=== PATIENT | male | born 1950 | race African-American/Black ===

== ENCOUNTER 2021-11-27 09:30 | Inpatient (IN) | payer MEDICARE ==
[2021-11-27] MEDS ORDERED: Cefepime 2 GM VIAL ONE (09:50)
[2021-11-27] MEDS ORDERED: Vancomycin 1 GM/200 ML BAG ONE (09:50)
[2021-11-27 10:12] LABS: Hemoglobin 10.2 g/dL (14.0-18.0); Mean Corpuscular HGB CONC 29.5 g/dL (32.0-36.0); Mean Corpuscular Hemoglobin 24.6 pg (27.0-31.0); Mean Corpuscular Volume 83.3 fL (78.0-98.0); Red Blood Cell (RBC) Count 4.13 mill/uL (4.70-6.10)
[2021-11-27 10:18] LABS: ALT (SGPT) 22 U/L (8-55); AST (SGOT) 22 U/L (5-34); Albumin 2.6 g/dL (3.4-4.8); Alkaline Phosphatase 117 U/L (40-110); Anion Gap 14 mmol/L (10-20); BUN (Urea Nitrogen) 27 mg/dL (8.4-25.7); Bilirubin, Total 0.4 mg/dL (0.2-1.2); Calc. Creatinine Clearance 0 mL/min (70-130); Calcium 8.7 mg/dL (7.8-10.44); Carbon Dioxide 28 mmol/L (23-31); Chloride 95 mmol/L (98-107); Glucose 323 mg/dL (80-115); Lipase 31 U/L (8-78); Potassium 4.4 mmol/L (3.5-5.1); Protein, Total 6.6 g/dL (5.8-8.1); Sodium 133 mmol/L (136-145)
[2021-11-27] MEDS ORDERED: Vancomycin 1.5 GRAM/300 ML BAG 1.5 GM in Premix Bag 1 BAG IVPB SCH (10:30)
[2021-11-27 10:32] LABS: Anisocytosis SLIGHT = 6-15 cells (100X) (0-5/hpf); Hypochromia SLIGHT = 6-15 cells (100X) (0-5/hpf); Lymphocytes 2 % (21-51); MDiff Complete? YES; Mean Platelet Volume 8.4 fL (7.4-10.4); Monocytes 2 % (0-10); Neutrophil 96 % (42-75); Platelet Count 187 thou/uL (130-400); Platelet Morphology Comment Appears Adequate; RBC Distribution Width 17.2 % (11.5-14.5); White Blood Cell (WBC) Count 1.4 thou/uL (4.8-10.8)
[2021-11-27] MEDS ORDERED: Acetaminophen 325 MG TAB PO PRN (11:19)
[2021-11-27] MEDS ORDERED: Ondansetron PF 4 MG/2 ML Vial IVP PRN (11:19)
[2021-11-27 11:43] LABS: Bilirubin Negative (Negative); Blood, Urine Negative (Negative); Clarity Clear (Clear); Glucose, Urine (Dipstick) 150 mg/dL (Negative); Ketone, Urine Negative (Negative); Leukocyte Negative Leu/uL (Negative); Nitrite Negative (Negative); Protein, Urine (Dipstick) 20 mg/dL (Neg-Trace); Specific Gravity, Urine 1.039 (1.002-1.036); Urobilinogen Normal mg/dL (Less than 2); pH, Urine 5.5 (5.0-9.0)
[2021-11-27] MEDS: Meropenem 1 GM in Sodium Chloride 0.9% 100 ML IVPB SCH ×3 (13:15→21:04)
[2021-11-27] MEDS ORDERED: Meropenem 1 GM in Sodium Chloride 0.9% 100 ML IVPB SCH (14:00)
[2021-11-28] MEDS: Meropenem 1 GM in Sodium Chloride 0.9% 100 ML IVPB SCH ×3 (04:55→21:39)
[2021-11-28 06:28] LABS: #Lymphocytes 0.2 thou/uL (1.20-3.40); #Monocytes 0.4 thou/uL (0.11-0.59); #Neutrophils 4.1 thou/uL (1.40-6.50); %Eosinophils 0.2 % (0.0-10.0); %Lymphocytes 4.9 % (21.0-51.0); %Neutrophils 86.9 % (42.0-75.0); Hemoglobin 8.2 g/dL (14.0-18.0); Hypochromia SLIGHT = 6-15 cells (100X) (0-5/hpf); MDiff Complete? YES; Mean Corpuscular HGB CONC 28.5 g/dL (32.0-36.0); Mean Corpuscular Hemoglobin 24.2 pg (27.0-31.0); Mean Platelet Volume 8.1 fL (7.4-10.4); Platelet Count 182 thou/uL (130-400); RBC Distribution Width 16.7 % (11.5-14.5); Red Blood Cell (RBC) Count 3.39 mill/uL (4.70-6.10); White Blood Cell (WBC) Count 4.8 thou/uL (4.8-10.8)
[2021-11-28 06:30] LABS: Anion Gap 10 mmol/L (10-20); BUN (Urea Nitrogen) 20 mg/dL (8.4-25.7); Calc. Creatinine Clearance 81 mL/min (70-130); Calcium 8.3 mg/dL (7.8-10.44); Carbon Dioxide 27 mmol/L (23-31); Chloride 104 mmol/L (98-107); Glucose 127 mg/dL (80-115); Potassium 4.1 mmol/L (3.5-5.1); Sodium 137 mmol/L (136-145)
[2021-11-28] MEDS ORDERED: Furosemide 40 MG/4 ML VIAL ONE (08:07)
[2021-11-28] MEDS ORDERED: Mometasone 200 MCG/Formoterol 5 MCG 120 PUFF INHALER INH SCH (08:45)
[2021-11-28] MEDS ORDERED: methylPREDNISolone Sod Succ/PF 125 MG/2 ML VIAL IVP SCH (08:45)
[2021-11-28] MEDS ORDERED: Magnesium Sulfate 2 GM in Sodium Chloride 0.9% 100 ML IVPB SCH (09:12)
[2021-11-28] MEDS ORDERED: Magnesium 2 GM/50 ML 2 GM in Premix Bag 1 BAG IVPB SCH (09:30)
[2021-11-28] MEDS: Enoxaparin Sodium 40 MG/0.4 ML SYRINGE SC SCH (10:21)
[2021-11-28] MEDS ORDERED: Labetalol HCl 100 MG/20 ML VIAL SLOW IVP PRN (10:41)
[2021-11-28] MEDS ORDERED: Furosemide 20 MG/2 ML VIAL SLOW IVP SCH (10:45)
[2021-11-28] MEDS: methylPREDNISolone Sod Succ 40 MG VIAL IVP SCH ×2 (10:56→17:16)
[2021-11-28] MEDS ORDERED: Vancomycin 1 GM in Premix Bag 1 BAG IVPB SCH (11:00)
[2021-11-28 11:38] LABS: Troponin I 0.019 ng/mL (< 0.028)
[2021-11-28] MEDS: Azithromycin 500 MG in Sodium Chloride 0.9% 250 ML 250 ML IVPB SCH (13:46)
[2021-11-28] MEDS: Mometasone 200 MCG/Formoterol 5 MCG 120 PUFF INHALER INH SCH (19:11)
[2021-11-29] MEDS: methylPREDNISolone Sod Succ 40 MG VIAL IVP SCH ×4 (00:21→17:11)
[2021-11-29 03:45] LABS: #Lymphocytes 0.2 thou/uL (1.20-3.40); #Monocytes 0.1 thou/uL (0.11-0.59); #Neutrophils 2.9 thou/uL (1.40-6.50); %Eosinophils 0.1 % (0.0-10.0); %Lymphocytes 5.7 % (21.0-51.0); %Neutrophils 90.2 % (42.0-75.0); Hemoglobin 8.5 g/dL (14.0-18.0); Mean Corpuscular HGB CONC 30.1 g/dL (32.0-36.0); Mean Corpuscular Hemoglobin 24.8 pg (27.0-31.0); Mean Corpuscular Volume 82.5 fL (78.0-98.0); Mean Platelet Volume 8.4 fL (7.4-10.4); Platelet Count 166 thou/uL (130-400); RBC Distribution Width 16.8 % (11.5-14.5); Red Blood Cell (RBC) Count 3.44 mill/uL (4.70-6.10); White Blood Cell (WBC) Count 3.2 thou/uL (4.8-10.8)
[2021-11-29 04:07] LABS: ALT (SGPT) 18 U/L (8-55); AST (SGOT) 16 U/L (5-34); Albumin 2.4 g/dL (3.4-4.8); Alkaline Phosphatase 103 U/L (40-110); Anion Gap 11 mmol/L (10-20); BUN (Urea Nitrogen) 22 mg/dL (8.4-25.7); Bilirubin, Total 0.4 mg/dL (0.2-1.2); Calc. Creatinine Clearance 70 mL/min (70-130); Calcium 8.5 mg/dL (7.8-10.44); Carbon Dioxide 31 mmol/L (23-31); Chloride 98 mmol/L (98-107); Globulin 3.3 g/dL (2.4-3.5); Glucose 284 mg/dL (80-115); Phosphorus 2.8 mg/dL (2.3-4.7); Protein, Total 5.7 g/dL (5.8-8.1); Sodium 136 mmol/L (136-145)
[2021-11-29] MEDS: Meropenem 1 GM in Sodium Chloride 0.9% 100 ML IVPB SCH ×3 (05:04→20:23)
[2021-11-29] MEDS: Mometasone 200 MCG/Formoterol 5 MCG 120 PUFF INHALER INH SCH ×2 (07:50→18:56)
[2021-11-29] MEDS: Enoxaparin Sodium 40 MG/0.4 ML SYRINGE SC SCH (09:47)
[2021-11-29] MEDS: Azithromycin 500 MG in Sodium Chloride 0.9% 250 ML 250 ML IVPB SCH (12:00)
[2021-11-29] MEDS: Vancomycin 1.5 GRAM/300 ML BAG 1.5 GM in Premix Bag 1 BAG IVPB SCH (12:04)
[2021-11-30] MEDS: methylPREDNISolone Sod Succ 40 MG VIAL IVP SCH ×4 (00:35→21:23)
[2021-11-30 03:51] LABS: #Lymphocytes 0.2 thou/uL (1.20-3.40); #Monocytes 0.3 thou/uL (0.11-0.59); #Neutrophils 4.9 thou/uL (1.40-6.50); %Eosinophils 0.1 % (0.0-10.0); %Lymphocytes 3.8 % (21.0-51.0); %Monocytes 5.5 % (0.0-10.0); %Neutrophils 90.6 % (42.0-75.0); Hemoglobin 9.2 g/dL (14.0-18.0); Mean Corpuscular HGB CONC 29.9 g/dL (32.0-36.0); Mean Corpuscular Hemoglobin 25.2 pg (27.0-31.0); Mean Corpuscular Volume 84.1 fL (78.0-98.0); Mean Platelet Volume 8.5 fL (7.4-10.4); Platelet Count 173 thou/uL (130-400); RBC Distribution Width 16.5 % (11.5-14.5); Red Blood Cell (RBC) Count 3.65 mill/uL (4.70-6.10); White Blood Cell (WBC) Count 5.4 thou/uL (4.8-10.8)
[2021-11-30 03:54] LABS: Anion Gap 10 mmol/L (10-20); BUN (Urea Nitrogen) 15 mg/dL (8.4-25.7); Calc. Creatinine Clearance 81 mL/min (70-130); Calcium 8.5 mg/dL (7.8-10.44); Carbon Dioxide 32 mmol/L (23-31); Chloride 97 mmol/L (98-107); Glucose 271 mg/dL (80-115); Potassium 3.3 mmol/L (3.5-5.1); Sodium 136 mmol/L (136-145)
[2021-11-30] MEDS: hydrALAZINE 20 MG/ML VIAL SLOW IVP PRN (04:34)
[2021-11-30] MEDS: Meropenem 1 GM in Sodium Chloride 0.9% 100 ML IVPB SCH ×3 (04:35→21:23)
[2021-11-30] MEDS: Enoxaparin Sodium 40 MG/0.4 ML SYRINGE SC SCH (10:13)
[2021-11-30] MEDS ORDERED: Dextrose 5% in Water 1,000 ML IV PRN (10:17)
[2021-11-30] MEDS ORDERED: Dextrose 50% Abboject 50 ML SYRINGE SLOW IVP PRN (10:17)
[2021-11-30] MEDS: Potassium Chloride 20 MEQ TAB PO SCH ×2 (10:39→15:06)
[2021-11-30] MEDS: Vancomycin 1.5 GRAM/300 ML BAG 1.5 GM in Premix Bag 1 BAG IVPB SCH (10:42)
[2021-11-30] MEDS: Mometasone 200 MCG/Formoterol 5 MCG 120 PUFF INHALER INH SCH ×2 (11:51→20:00)
[2021-11-30] MEDS: Azithromycin 500 MG in Sodium Chloride 0.9% 250 ML 250 ML IVPB SCH (12:53)
[2021-11-30] MEDS: HumaLOG 300 UNITS/3 ML VIAL SC PRN ×2 (17:50→21:23)
[2021-11-30] MEDS: Melatonin 3 MG TAB PO PRN (23:40)
[2021-12-01] MEDS: methylPREDNISolone Sod Succ 40 MG VIAL IVP SCH ×2 (05:07→18:09)
[2021-12-01] MEDS: Meropenem 1 GM in Sodium Chloride 0.9% 100 ML IVPB SCH ×3 (05:07→19:57)
[2021-12-01 05:29] LABS: Anion Gap 15 mmol/L (10-20); BUN (Urea Nitrogen) 18 mg/dL (8.4-25.7); Calc. Creatinine Clearance 89 mL/min (70-130); Calcium 8.6 mg/dL (7.8-10.44); Carbon Dioxide 29 mmol/L (23-31); Chloride 99 mmol/L (98-107); Glucose 229 mg/dL (80-115); Potassium 4.3 mmol/L (3.5-5.1); Sodium 139 mmol/L (136-145)
[2021-12-01] MEDS: HumaLOG 300 UNITS/3 ML VIAL SC PRN ×3 (06:03→19:57)
[2021-12-01] MEDS: Mometasone 200 MCG/Formoterol 5 MCG 120 PUFF INHALER INH SCH ×2 (08:18→20:10)
[2021-12-01] MEDS: Enoxaparin Sodium 40 MG/0.4 ML SYRINGE SC SCH (08:33)
[2021-12-01] MEDS: Pantoprazole 40 MG VIAL IVP SCH (08:33)
[2021-12-01 10:33] LABS: Vancomycin, Trough 9.6 ug/mL
[2021-12-01] MEDS: Vancomycin 1 GM in Premix Bag 1 BAG IVPB SCH ×2 (10:55→23:08)
[2021-12-01] MEDS: Azithromycin 500 MG in Sodium Chloride 0.9% 250 ML 250 ML IVPB SCH (12:16)
[2021-12-01 13:24] VITALS: BMI 21.7
[2021-12-01] MEDS: Melatonin 3 MG TAB PO PRN (19:57)
[2021-12-02] MEDS: hydrALAZINE 20 MG/ML VIAL SLOW IVP PRN (00:11)
[2021-12-02] MEDS: methylPREDNISolone Sod Succ 40 MG VIAL IVP SCH ×2 (05:19→17:41)
[2021-12-02] MEDS: Meropenem 1 GM in Sodium Chloride 0.9% 100 ML IVPB SCH ×3 (05:19→20:33)
[2021-12-02] MEDS: HumaLOG 300 UNITS/3 ML VIAL SC PRN ×3 (05:26→20:34)
[2021-12-02] MEDS: Mometasone 200 MCG/Formoterol 5 MCG 120 PUFF INHALER INH SCH ×2 (07:00→20:30)
[2021-12-02] MEDS: Pantoprazole 40 MG VIAL IVP SCH (08:11)
[2021-12-02] MEDS: Enoxaparin Sodium 40 MG/0.4 ML SYRINGE SC SCH (08:11)
[2021-12-02] MEDS: Vancomycin 1 GM in Premix Bag 1 BAG IVPB SCH ×2 (10:16→23:56)
[2021-12-02] MEDS: Azithromycin 500 MG in Sodium Chloride 0.9% 250 ML 250 ML IVPB SCH (12:23)
[2021-12-02] MEDS ORDERED: MUCINEX INSTASOOTHE SPRY (115 ML BOT) PO PRN (18:35)
[2021-12-02] MEDS: Melatonin 3 MG TAB PO PRN (20:33)
[2021-12-02 22:35] LABS: Vancomycin, Trough 19.5 ug/mL
[2021-12-03] MEDS: methylPREDNISolone Sod Succ 40 MG VIAL IVP SCH ×2 (05:36→17:27)
[2021-12-03] MEDS: HumaLOG 300 UNITS/3 ML VIAL SC PRN ×4 (05:36→20:32)
[2021-12-03] MEDS: Meropenem 1 GM in Sodium Chloride 0.9% 100 ML IVPB SCH ×2 (05:37→13:17)
[2021-12-03] MEDS: Mometasone 200 MCG/Formoterol 5 MCG 120 PUFF INHALER INH SCH (06:48)
[2021-12-03] MEDS: Pantoprazole 40 MG VIAL IVP SCH (08:33)
[2021-12-03] MEDS: Enoxaparin Sodium 40 MG/0.4 ML SYRINGE SC SCH (08:34)
[2021-12-03] MEDS: Vancomycin 1 GM in Premix Bag 1 BAG IVPB SCH (10:16)
[2021-12-03] MEDS: Azithromycin 500 MG in Sodium Chloride 0.9% 250 ML 250 ML IVPB SCH (12:08)
[2021-12-04] MEDS: Melatonin 3 MG TAB PO PRN (02:46)
[2021-12-04] MEDS: Mometasone 200 MCG/Formoterol 5 MCG 120 PUFF INHALER INH SCH ×2 (03:03→08:08)
[2021-12-04] MEDS: methylPREDNISolone Sod Succ 40 MG VIAL IVP SCH (05:32)
[2021-12-04] MEDS: HumaLOG 300 UNITS/3 ML VIAL SC PRN ×3 (05:38→17:57)
[2021-12-04] MEDS: Pantoprazole 40 MG VIAL IVP SCH (09:22)
[2021-12-04] MEDS: Enoxaparin Sodium 40 MG/0.4 ML SYRINGE SC SCH (09:22)
[2021-12-04 09:38] VITALS: BP 149/72; TEMP 98.2
[2021-12-04] MEDS ORDERED: Azithromycin 200 MG/5 ML Oral Suspension PO SCH (12:45)
== END 2021-12-04 18:05 | disposition home or self-care (01) | DRG 871 ==
LOC: ERS 09:30 → MSONC 11:01 → IMCU/EMU 11-28 09:36 → MSONC 11-30 14:08
PROVIDERS: ADMIT Internal Medicine; ATTEND Internal Medicine
PROC: 3E03329 Introduction of Other Anti-infective into Peripheral Vein, Percutaneous Approach (ICD-10-PCS; 2021-11-27)
PROC: 5A09357 Assistance with Respiratory Ventilation, Less than 24 Consecutive Hours, Continuous Positive Airway Pressure (ICD-10-PCS; principal; 2021-11-28)
PROC: 5A0945A Assistance with Respiratory Ventilation, 24-96 Consecutive Hours, High Flow/Velocity Cannula (ICD-10-PCS; 2021-11-28)
DX: A41.9 Sepsis, unspecified organism (principal); G93.41 Metabolic encephalopathy; J96.21 Acute and chronic respiratory failure with hypoxia; J96.22 Acute and chronic respiratory failure with hypercapnia; J15.9 Unspecified bacterial pneumonia; C34.90 Malignant neoplasm of unspecified part of unspecified bronchus or lung; R64 Cachexia; Z51.5 Encounter for palliative care; E11.9 Type 2 diabetes mellitus without complications; K21.9 Gastro-esophageal reflux disease without esophagitis; I10 Essential (primary) hypertension; R00.1 Bradycardia, unspecified; D70.1 Agranulocytosis secondary to cancer chemotherapy; T45.1X5A Adverse effect of antineoplastic and immunosuppressive drugs, initial encounter; D50.9 Iron deficiency anemia, unspecified; J43.9 Emphysema, unspecified; Z85.46 Personal history of malignant neoplasm of prostate; Z87.891 Personal history of nicotine dependence; Z86.19 Personal history of other infectious and parasitic diseases; Z86.16 Personal history of COVID-19; Z68.21 Body mass index [BMI] 21.0-21.9, adult
CPT/HCPCS: 36415; 36416; 70450; 71045; 80048; 80053; 80202; 81003; 83605; 83690; 83735; 83880; 84100; 84443; 84484; 85025; 87040; 87086; 93005; 94640; 94660; 96365; 96375; C9113; J0360; J0456; J0692; J1650; J1815; J1940; J2185; J2920; J2930; J3370; J3475; J3490; J7050; J7620